=== PATIENT | female | born 1945 | race Caucasian/White ===

== ENCOUNTER 2018-11-16 09:26 | Day surgery (SDC) | payer MEDICARE, OTHER ==
[~2018-11-16] VITALS: Ht 160 cm; Wt 50.9 kg
[~2018-11-16 09:26] MED LIST: ALPR.5; ALPR.5 PO; ASCO500 PO; Budeprion Xl300 MG; CHOL10002; CHOL10002 PO; CYAN500 PO; DILAUDID; DOXEPIN; HYDMOR4 PO; METHOTREXATE; MULTI VITAMIN1 EACH PO; OMEP20ER; OMEPRAZOLE MAGN20 MG PO; PROLIA60 MG/1 ML SC; Super Calcium600 MG PO; TEMA15 PO; VITAMIN B122500 MCG; ZIPR40 PO; [UNRECOGNIZED DRUG - OTHER]
--- NOTE | 2018-11-16 11:34 | NUR ---
11/16/18 1134 Betty Art ATTEMPTED TO START PROCEDURE PT HAD LARYNGEAL SPASM. O2 DROPPED TO MID 80S. PROCEDURE STOPPED BY DR KO. NONREBREATHING MASK APPLIED, O2 UP TO 10, 1.5 ML LIDOCAINE IV PER DR KO ORDER. PT CALMED DOWN AND PROCEDURE STARTED AGAIN AT 1120. PT TOLERATED THIS WELL.
== END 2018-11-16 12:11 | disposition home or self-care (01) ==
LOC: ORSCSDS 09:26
PROVIDERS: Internal Medicine Gastroenterology
PROC: 0DB58ZX Excision of Esophagus, Via Natural or Artificial Opening Endoscopic, Diagnostic (ICD-10-PCS; principal; 2018-11-16 10:45)
PROC: 0DB98ZX Excision of Duodenum, Via Natural or Artificial Opening Endoscopic, Diagnostic (ICD-10-PCS; principal; 2018-11-16 10:45)
PROC: 0DB68ZX Excision of Stomach, Via Natural or Artificial Opening Endoscopic, Diagnostic (ICD-10-PCS; principal; 2018-11-16 10:45)
DX: K22.70 Barrett's esophagus without dysplasia (principal); K44.9 Diaphragmatic hernia without obstruction or gangrene; R11.0 Nausea; M06.9 Rheumatoid arthritis, unspecified; Z86.19 Personal history of other infectious and parasitic diseases; I10 Essential (primary) hypertension; F41.8 Other specified anxiety disorders; Z87.891 Personal history of nicotine dependence
CPT/HCPCS: 88305; 88342; J2704; J7120

== ENCOUNTER 2019-10-05 07:13 | Day surgery (SDC) | payer MEDICARE, OTHER ==
[~2019-10-05] VITALS: Ht 160 cm; Wt 51.0 kg
[2019-10-05] MEDS ORDERED: DESVENLAFAXINE50 MG PO (08:33)
[2019-10-05] MEDS ORDERED: PROP10 PO (08:34)
[2019-10-05] MEDS ORDERED: TOPI15C (08:35)
== END 2019-10-05 09:48 | disposition home or self-care (01) ==
LOC: ORSCSDS 07:13
PROVIDERS: Ophthalmology
PROC: 08RK3JZ Replacement of Left Lens with Synthetic Substitute, Percutaneous Approach (ICD-10-PCS; principal; 2019-10-05 09:00)
DX: H25.12 Age-related nuclear cataract, left eye (principal); Z86.73 Personal history of transient ischemic attack (TIA), and cerebral infarction without residual deficits; K21.9 Gastro-esophageal reflux disease without esophagitis; Z79.899 Other long term (current) drug therapy
CPT/HCPCS: J2001; J2250; J3010; J3301; J7040; V2632